=== PATIENT | female | born 1945 | race Caucasian/White ===

== ENCOUNTER 2023-05-26 14:25 | Emergency (ER) | payer MEDICARE, OTHER ==
[~2023-05-26] VITALS: Ht 157.5 cm; Wt 47.6 kg
[2023-05-26 15:11] LABS: BASOPHILS % (AUTO) 0.5 % (0.0-2.0); EOSINOPHILS # (AUTO) 0.1 K/uL (0.0-0.7); EOSINOPHILS % (AUTO) 1.5 % (0.0-6.0); HEMATOCRIT 45 % (33-45); HEMOGLOBIN 14.9 g/dL (11.5-14.8); LYMPHOCYTES # (AUTO) 1.3 K/uL (0.8-4.8); MEAN CORPUSCULAR HEMOGLOBIN 31 PG (26.0-33.0); MEAN CORPUSCULAR HGB CONC 33 g/dl (31.0-36.0); MEAN CORPUSCULAR VOLUME 94 fL (82-100); MONOCYTES # (AUTO) 0.5 K/uL (0.1-1.30); MONOCYTES % (AUTO) 8.2 % (2.0-12.0); NEUTROPHILS # (AUTO) 4.3 K/uL (1.8-8.9); NEUTROPHILS % (AUTO) 68.8 % (43.0-81.0); PLATELET COUNT (AUTO) 185 K/uL (150-450); RED BLOOD CELL COUNT(AUTO) 4.75 MIL/uL (4.0-5.2); RED CELL DISTRIBUTION WIDTH 14.2 % (11.5-15.0); WHITE BLOOD COUNT (AUTO) 6.3 K/uL (4.3-11.0)
[2023-05-26 15:19] LABS: CALCIUM, SERUM 9.4 mg/dL (8.5-10.1); CARBON DIOXIDE 26 mmol/L (21-32); CHLORIDE 102 mmol/L (98-107); CREATININE 1.1 mg/dL (0.6-1.3); GLUCOSE 155 mg/dL (74-106); POTASSIUM 3.1 mmol/L (3.5-5.1); SODIUM SERUM 138 mmol/L (136-145); UREA NITROGEN, BLOOD 24 mg/dL (7-18)
[2023-05-26] MEDS ORDERED: MORPHINE SULFATE INJ 2 MG/ML DISP.SYRIN ONE (15:23)
[2023-05-26] MEDS ORDERED: ONDANSETRON HCL/PF 4 MG/2 ML VIAL ONE (15:23)
[2023-05-26] MEDS ORDERED: PANTOPRAZOLE 40 MG VIAL ONE (15:23)
[2023-05-26] MEDS: ONDANSETRON HCL/PF 4 MG/2 ML VIAL IVP ONE (15:28)
[2023-05-26] MEDS: MORPHINE SULFATE INJ 2 MG/ML DISP.SYRIN IV ONE ×2 (15:30→19:18)
[2023-05-26 15:33] LABS: ALANINE AMINOTRANSFERASE 19 U/L (12-78); ALBUMIN 3.9 g/dL (3.4-5.0); ALKALINE PHOSPHATASE 38 U/L (46-116); ASPARTATE AMINOTRANSFERASE 23 U/L (15-37); BILIRUBIN,DIRECT 0.3 mg/dL (0.0-0.2); LIPASE 11 U/L (16-77); NT-PRO BNP 1609 pg/mL (0-125); TOTAL PROTEIN, SERUM 7.4 g/dL (6.4-8.2)
[2023-05-26] MEDS: PANTOPRAZOLE 40 MG VIAL IV ONE (15:34)
[2023-05-26] MEDS: IV NS 0.9% 1,000 ML BAG IV ONE (15:35)
[2023-05-26] MEDS ORDERED: HALOPERIDOL LACTATE INJ 5 MG/ML VIAL ONE (16:44)
[2023-05-26] MEDS: HALOPERIDOL LACTATE INJ 5 MG/ML VIAL IV ONE (16:48)
[2023-05-26] MEDS ORDERED: CT SWABBABLE VALVE TRANS SET 1 EA INFUS.SET MC ONE (17:44)
[2023-05-26] MEDS ORDERED: IOHEXOL-300 100 ML VIAL IV ONE (17:44)
[2023-05-26] MEDS ORDERED: IV NS 0.9% 250 ML IV ONE (17:45)
[2023-05-26] MEDS ORDERED: MORPHINE SULFATE INJ 4 MG/ML DISP.SYRIN ONE (19:10)
[2023-05-26] MEDS ORDERED: METOCLOPRAMIDE HCL 10 MG/2 ML VIAL ONE (19:10)
[2023-05-26] MEDS: METOCLOPRAMIDE HCL 10 MG/2 ML VIAL IV ONE (19:15)
[2023-05-26 19:17] LABS: APPEARANCE,URINE CLEAR (CLEAR); BILIRUBIN,URINE NEGATIVE (NEGATIVE); BLOOD, URINE NEGATIVE Ery/uL (NEGATIVE); COLOR,URINE YELLOW (YELLOW); KETONES,URINE NEGATIVE (NEGATIVE); LEUKOCYTE ESTERASE ,URINE TRACE (NEGATIVE); NITRITE, URINE NEGATIVE (NEGATIVE); PROTEIN,URINE NEGATIVE (NEGATIVE); UGLUCOSE NEGATIVE (NEGATIVE)
[2023-05-26 19:19] VITALS: BP 149/91; TEMP 98.4; O2SAT 100
[2023-05-26 19:39] LABS: ADD URINE CULTURE YES; BACTERIA,URINE 1+ /HPF (None Seen); RBC,URINE 0-2 /HPF (0-2); SQUAMOUS EPITHELIAL CELL,UR Few /HPF (None Seen); WBC,URINE 21-50 /HPF (0-3)
== END 2023-05-26 19:23 | disposition left against medical advice (07) ==
LOC: ER 14:31
DX: K31.1 Adult hypertrophic pyloric stenosis (principal); K44.9 Diaphragmatic hernia without obstruction or gangrene; R10.13 Epigastric pain; R11.2 Nausea with vomiting, unspecified; I50.9 Heart failure, unspecified; I48.91 Unspecified atrial fibrillation; Z88.8 Allergy status to other drugs, medicaments and biological substances
CPT/HCPCS: 99285; 71260; 96374; 96375; 71045; 96361; 93005; 74177; 85025; 80048; 87086; 83690; 80076; 81001; 36415; 84484 ×2; 83880; 96376; J1630; J2270 ×2; J2765; J2405; J7030; J7050; C9113; Q9967